=== PATIENT | male | born 1960 | race Caucasian/White ===

== ENCOUNTER → 2018-11-03 | Outpatient (CLI) | payer OTHER ==
--- NOTE | 2018-11-03 12:49 | RADIOLOGY IMAGING REPORT ---
[place] [facility] [place] NAME: Evgeny Cohen : 1960 MR: [id number] V: [id number] EXAM DATE: ORDERING PHYSICIAN: EVGENY CHENEY TECHNOLOGIST: Location: [facility] Patient: Evgeny Cohen : 1960 Visit/Account:[id number] Date of Sevice: 11/03/2018 CHEST PA LAT HISTORY: Cough. COMPARISON: None FINDINGS: Cardiomediastinal contours: The heart size is normal. Lungs and pleura: There is no finding of an infiltrate, lymphadenopathy or pleural effusion. Bones/soft tissues: There are no findings of a fracture. IMPRESSION: Normal chest x-ray without findings of acute disease. Report Dictated By: Chad Cox MD at 11/03/2018 12:43 PM Report E-Signed By: Chad Cox MD at 11/03/2018 12:44 PM WSN:[id number]
== END ==
LOC: RAD 11:43
PROVIDERS: ATTEND Family Medicine
DX: R05 Cough (principal)
CPT/HCPCS: 71046